=== PATIENT | female | born 1975 | race Caucasian/White ===

== ENCOUNTER 2025-04-17 14:45 | Outpatient (AMB) | payer OTHER, SELFPAY ==
--- NOTE | 2025-04-17 14:46 | A.OFFVIS_ITS ---
Intake Visit Reasons: 6 mnts / Migraine Allergies No Known Allergies Allergy (Verified 04/17/25 14:47) Medication List - Last Reconciled 04/17/25 by Sera Kennedy CNP estradiol 1 patch topical 2XW sumatriptan succinate mg PO ubrogepant (Ubrelvy) mg PO HPI Comments Details: She was doing okay. Headaches were about the same. Gets migraine about 1-2x/week and can last up to 1-2 days. Triggers include weather changes. Ubrelvy and sumatriptan as needed helped. Working at home for [employer]. Sleep was not so good. Migraines became more frequent after hysterectomy in 12/2022. In the past, migraines were worse around menses. Infrequent regular headaches. Hx of migraines without aura, chronic muscle tension type headaches. [facility] Medical History (Updated 04/17/25 @ 14:49 by Sera Kennedy CNP) Migraine Review of Systems Const Denies chills, Denies daytime sleepiness, Reports difficulty sleeping, Denies fatigue, Denies fever(s), Denies frequent falls, Reports headache(s), Denies increased appetite, Denies poor appetite, Denies snoring, Denies weakness, Denies weight gain and Denies weight loss Eyes Denies loss of vision ENT Denies vertigo, Denies dizziness, Reports headache(s) and Denies neck pain Card Denies chest pain at rest, Denies chest pain with activity, Denies syncope, Denies leg edema, Denies palpitations, Denies dyspnea and Denies dyspnea on exertion Resp Denies cough, Denies dyspnea, Denies dyspnea on exertion and Denies snoring GI Denies abdominal pain, Denies constipation, Denies heartburn, Denies diarrhea and Denies nausea Denies urinary frequency, Denies urinary incontinence and Denies urinary urgency Musc Denies abnormal gait, Denies back pain, Denies myalgias, Denies arthralgias, Denies neck pain, Denies numbness and Denies tingling Neuro Denies abnormal gait, Denies vertigo, Denies dizziness, Denies syncope, Denies frequent falls, Reports headache(s), Denies lack of coordination, Denies loss of vision, Denies memory loss, Denies numbness, Denies Other visual disturbances, Denies restless legs, Denies seizure-like activity, Denies tingling, Denies paresthesias, Denies tremor(s) and Denies weakness Psych Reports anxiety, Denies depression, Denies auditory hallucinations, Denies memory loss and Denies visual hallucinations Endo Denies fatigue and Denies palpitations Physical Exam Const Other: General Appearance:? normal, in no acute distress. Heart:? S1, S2 normal, no murmurs. Lungs:? clear anteriorly and posteriorly. Musculoskeletal:? normal. Extremities:? no edema. Psych:? alert, oriented, cognitive function intact, cooperative with exam. Neuro Other: Abnormal Neurological Findings:?none.? Mental Status: alert and oriented X 3. Normal attention, orientation, memory, and affect. Cranial Nerves: Pupils are equal, round, and reactive to light. External ocular muscles are intact. Visual bolaños are full, no ptosis. Face is symmetrical, no facial weakness or droop. Facial sensations are normal. Tongue protrudes in midline. Palate elevates symmetrically. Shoulder shrugging is normal Motor Examination: Normal muscle tone, bulk and strength. No atrophy or fasciculations. No drift of the extended upper extremities. DTR 2+. Plantars are flexor. Straight Leg Raisin degrees. Sensory Exam: Normal light touch, temperature, pinprick, vibration, and joint- position sensations. Rhomberg sign is absent. Coordination: No ataxia. No titubation. Ranpnp-ij-[id number], fwxg-[id number]-[id number] test, and rapid alternating movements were normal. Gait Exam: Within normal limits. Cerebellar Signs: [id number]-[id number] and frvj-tj-exyq is normal. No dysdiadochokinesia. Extrapyramidal System: No tremor, rigidity with normal facial expressions. No bradykinesia. No bradyphrenia. Normal arm swing and posture. No propulsion or retropulsion. Speech: Normal. No dysphasia or dysarthria. Assessment & Plan Assessment & Plan (1) Migraine: Code(s): G43.909 - Migraine, unspecified, not intractable, without status migrainosus Category: Medical Qualifiers: Migraine type: unspecified Status migrainosus presence: without status migrainosus Intractability: not intractable Qualified Code(s): G43.909 - Migraine, unspecified, not intractable, without status migrainosus Plan: Continue Ubrelvy 100mg 1 tablet as needed for migraine #8 for 30 days Continue sumatriptan 100mg 1 tablet as needed for migraine Plan Meds tried: amitriptyline (side effects), topiramate (side effects of memory issues), tried and failed propranolol and NSAIDS, severe injection site reactions with Emgality and Aimovig Was getting 16 days of migraine a month. Does not want to try Botox or Gabapentin Medications: New sumatriptan succinate take 1 tab at onset of headache; if no relief, may repeat 1 tab after at least 2 hrs; max = 2 tabs/24 hrs PO 30 tabs 1RF 90 days Discontinued sumatriptan succinate Discontinued Reason: Order PO Coding Level of Care Code Est Pt Level 3 (86272) Diagnoses Migraine without status migrainosus, not intractable, unspecified migraine type G43.909 Migraine type: unspecified Status migrainosus presence: without status migrainosus Intractability: not intractable
== END 2025-04-17 15:03 | disposition home or self-care (01) ==
LOC: HO.HSM 14:45
PROVIDERS: PCP Nurse Practitioner Family; Visit Provider Registered Nurse
DX: G43.909 Migraine, unspecified, not intractable, without status migrainosus (principal)
CPT/HCPCS: 99213